=== PATIENT | female | born 1965 | race Two or more races ===

== ENCOUNTER 2022-03-30 07:15 | Outpatient (CLI) | payer OTHER | END 2022-03-30 07:31 | disposition home or self-care (01) | LOC: SONOGRAMA 07:15 | PROVIDERS: ATTEND General Practice | DX: E11.8 Type 2 diabetes mellitus with unspecified complications (principal); Z13.29 Encounter for screening for other suspected endocrine disorder; Z11.1 Encounter for screening for respiratory tuberculosis; R10.9 Unspecified abdominal pain ==